=== PATIENT | female | born 1940 | race Caucasian/White ===

== ENCOUNTER → 2018-12-14 15:48 | Outpatient (CLI) | payer MEDICARE, BC ==
[2018-12-17 10:08] LABS: IMMUNOGLOBULIN A 164 mg/dL (64-422); IMMUNOGLOBULIN G 1343 mg/dL (700-1600); IMMUNOGLOBULIN M 81 mg/dL (26-217)
[2018-12-18 12:09] LABS: ANGIOTENSIN CONVERTING ENZYME < 15 U/L (14-82)
[2018-12-19 17:08] LABS: FUNGAL - ASP FLAVUS Negative (Neg:<1:1); FUNGAL - ASP NIGER Negative (Neg:<1:1); FUNGAL - ASPER FUMIGATUS Negative (Neg:<1:1)
[2018-12-20 03:07] LABS: IMMUNOGLOBULIN E 33 IU/mL (6-495)
== END | disposition home or self-care (01) ==
LOC: D.LABREF 15:48
PROVIDERS: ATTEND Internal Medicine Pulmonary Disease
DX: R91.8 Other nonspecific abnormal finding of lung field (principal)

== ENCOUNTER → 2018-12-26 14:10 | Outpatient (CLI) | payer MEDICARE, BC | END | disposition home or self-care (01) | LOC: D.RT 09:30 | PROVIDERS: ATTEND Internal Medicine Pulmonary Disease | DX: J45.909 Unspecified asthma, uncomplicated (principal) ==

== ENCOUNTER 2019-03-09 17:06 | Inpatient (IN) | payer MEDICARE, BC ==
[~2019-03-09] VITALS: Ht 167.6 cm; Wt 102.7 kg
--- NOTE | ~2019-03-09 | EC ---
PATIENT:ALEN VALDERRAMA DATE OF SERVICE: 03/09/19 SEX: F MEDICAL RECORD: [id number] DATE OF : 42 LOCATION:D. D.212 AGE OF PATIENT: 78 ADMISSION DATE: 03/09/19 REFERRING PHYSICIAN: INTERPRETING PHYSICIAN: YUDI VELASQUEZ MD ECHOCARDIOGRAM REPORT ECHO CHARGES 4 ECHO COMPLETE Date: 03/10/19 CLINICAL DIAGNOSIS: ATRIAL FIB ECHOCARDIOGRAPHIC MEASUREMENTS (adult normal given) AC root (d.<3.7cm) 3.4 cm LV Septum d (<1.2 cm> 1.2 cm Valve Excursion 1.2 cm LV Septum (systole) 1.4 cm Left Atria (s.<4.0cm> 4.0 cm LVPW d(<1.2cm) 1.2 cm RV (d.<2.3cm) 3.8 cm LVPW (sytole) 1.4 cm LV diastole(<5.6CM) 4.1 cm MV E-F(>70mm/sec) cm LV systole 3.0 cm LVOT Diameter 1.5 cm MV exc.(>10mm) 1.1 cm Est.ejection fraction (50-75%) % DOPPLER: LVIT cm/sec A 60.0 cm/sec E 181.0 cm/sec LA cm/sec RVSP 55 mmHg LVOT 148 cm/sec AOP1/2T m/s Asc. Ao 214 cm/sec RVOT 100 cm/sec RA cm/sec PA 103 cm/sec AV Gradient Peak 18.28mmHg AV Mean 10.47mmHg AV Area cm MV Gradient Peak 20.47mmHg MV Mean 7.26 mmHg MV Area cm COMMENTS: Electrician Outside: 2 JOSEPH CHAVIS [employer] Nutritional Monitor: 1 Dr. Velasquez TAPE# PACS Pericardial Effusion N DATE OF SERVICE: ECHOCARDIOGRAM FINDINGS: 1. Left ventricular chamber size is within normal limits. Left ventricular systolic function is normal. Overall ejection fraction estimated at 50-55%. 2. Left atrium is enlarged at 4.0 cm. Right atrium and right ventricular chamber sizes are as well mildly dilated. 3. Valvular structures; aortic valve demonstrates mild calcific aortic ECHOCARDIOGRAM REPORT [id number] ALEN VALDERRAMA stenosis, valve area calculates 1.5 cm squared and has a gradient of 18 mm across the valve. The mitral valve as well is very heavily calcified and appears restricted. There appears to be a gradient of 20 mm across the mitral valve. The remaining valvular structures have normal structure and motion. 4. Doppler interrogation elsewise reveals mild aortic insufficiency, moderate mitral regurgitation, moderate tricuspid regurgitation, no other valvular insufficiency or stenosis. Pulmonary systolic pressure is elevated estimated at 55 mmHg. 5. No evidence of pericardial effusion or left ventricular thrombus. TRANSINT:[id number] Voice Confirmation ID: [id number] DOCUMENT ID: [id number] YUDI VELASQUEZ MD CC: [id number] DICTATION DATE: 03/11/19 1252 LEATHER SPONGER: 03/11/19 1341 ADM IN [facility] [address] [place] [address]
--- NOTE | ~2019-03-09 | OP ---
PATIENT NAME: ALEN VALDERRAMA MEDICAL RECORD: [id number] :42 LOCATION:D.M2 D.2124 ADMISSION DATE:03/09/19 SURGEON: YUDI DIAZ MD DATE OF OPERATION: 03/12/2019 PROCEDURES: 1. DC cardioversion. 2. IFR RCA. 3. IFR left circumflex. 4. Left heart catheterization. 5. Selective coronary angiography. 6. Left ventriculogram. INDICATION: Non-Q-wave myocardial infarction, atrial fibrillation, congestive heart failure. PROCEDURE IN DETAIL: After informed consent was obtained and after a detailed description of risks, benefits as well as alternative therapies, the patient elected to proceed with angiogram and heart catheterization. The right femoral area was prepped and draped in normal sterile fashion. Right femoral artery was cannulated via modified Seldinger technique with placement of 6-[place] Islander sheath. All catheters exchanged through this sheath. FINDINGS: The left ventriculogram was performed in standard 30-degree CASEY view, reveals global hypokinesis, ejection fraction in the 35% range. SELECTIVE CORONARY ANGIOGRAPHY: 1. Left main is with no significant angiographic disease. 2. Left anterior descending has mild irregularities, no flow-limiting stenosis. 3. The left circumflex has moderate irregularities. IFR is normal. 4. Right coronary has moderate irregularities. IFR was normal. IV conscious sedation was performed per anesthesia. Continuous heart rate, O2 saturation, blood pressure monitoring all undertaken, all of which remains stable. She received 1 shock at 275 joules restoring sinus rhythm. OVERALL IMPRESSION: 1. No significant coronary artery disease is present. 2. Cardiomyopathy, ejection fraction at 35%. IMPRESSION: Successful DC cardioversion from atrial fibrillation to sinus rhythm. TRANSINT:[id number] Voice Confirmation ID: [id number] DOCUMENT ID: [id number] YUDI DIAZ MD CC: [id number] DICTATION DATE: 03/12/19 0956 ASSEMBLY INSPECTOR: 03/12/19 1312 ADM IN [place] [address] [place] [address]
--- NOTE | ~2019-03-09 | HEMODYNAMI ---
PATIENT:ALEN VALDERRAMA MEDICAL RECORD: [id number] : 44 [facility] ADMISSION DATE: 03/09/19 Generatedon:03/12/201910:03 Patient name: ALEN VALDERRAMA Patient #: [id number] SSN: DO B: 1940 Date of study: 03/12/2019 Page: Of Hemodynamic Procedure Report Patient Data Patient Demographics Procedure consent was obtained First Name: ALEN Gender: Female Last Name: LAVELLE : 1940 [facility] Initial: NEFTALI Age: 78 year(s) Patient #: [id number] Race: Unknown Additional ID: [id number] Contact details [address]: [address] [place] [address] State: [place] City: [place] Zip code: [address] Past Medical History Allergies: No known allergies Admission Admission Data Admission Date: 03/09/2019 Admission Time: 18:40 Arrival Date: 03/12/2019 Arrival Time: 0:00 Admit Source: Other Insurance Payor: Medicare Room #: D.2124 [facility] #: [id number] Height (in.): 66 BSA: 2.06 (m2) Height (cm.): 167.64 BMI: 34.54 (kg/m2) Weight (lbs.): 214 Weight (kg.): 97.07 Lab Results Lab Result Date: 03/12/2019 Lab Result Time: 0:00 Biochemistry Name Units Result Min Max BUN mg/dl 28 --(----)-* 7 18 Creatinine mg/dl 0.9 --(-*--)-- 0.6 1.3 eGFR ml/min 64.34187 *-(----)-- 90 120 NONAFRICAN Troponin l ng/ml 0.022 --(-*--)-- 0 0.06 CBC Name Units Result Min Max Hematocrit % 38 *-(----)-- 42 54 Hemoglobin g/dl 12.4 *-(----)-- 13.5 17.5 Procedure Procedure Types Cath Procedure Diagnostic Procedure [facility] w/Coronaries FFR/IVUS FFR Initial FFR Additional Cardioversion External Procedure Description Procedure Date Procedure Date: 03/12/2019 Procedure Start Time: 9:39 Procedure End Time: 10:00 Procedure Staff Name Function Shelley Guzman RT Monitor Jere Galvan RN Nurse Radha Montemayor RT Scrub John Velasquez MD Performing Physician Indication Shortness of breath Atrial fibrillation Angina Pulmonary hypertension Procedure Data Cath Procedure Fluoroscopy Diagnostic fluoroscopy Total fluoroscopy Time: 2.8 time: 2.8 min min Contrast Material Contrast Material Type Amount (ml) Isovue 370 51 Entry Location Entry Primary Successful Side Size Upsize Upsize Entry Closure Succes sful Closure Location (Fr) 1 (Fr) 2 (Fr) Remarks Device Remarks Femoral Right 5 Fr 6 Fr Exoseal artery Short Estimated blood loss: 10 ml Diagnostic catheters Device Type Used For End Catheter Placement MULTIPACK Pigtail 5 Fr Procedure catheter MULTIPACK JL 4.0 5Fr Procedure catheter MULTIPACK 3DRC 5Fr Procedure catheter Procedure Complications No complications Procedure Medications Medication Administration Route Dosage Oxygen etCO2 Nasal cannula 4 l/min Heparin Flush Bag added to field 2 bags (1000units/500ml NS) 0.9% NaCl I.V. 100 ml/hr Lidocaine 2% added to field 20 Refer to Anesthesia Notes for Sedation Medications Hemodynamics Rest BSA: 2.06 (m2) HGB: 12.4 (g/dl) O2 Consumption: Estimated: 211.65 (ml/min) O2 Co nsumption indexed: Estimated:102.74 (ml/min/m) Heart Rate: 102 (bpm) Snapshots Pre Cath Intra NCS Post Cath Vital Signs Time Heart Resp SPO2 etCO2 NIBP (mmHg) Rhythm Pain Sedation Rate (ipm) (%) (mmHg) Status Level (bpm) 9:30:07 105 25 98 3 119/79(112) A-Fib (Missing) 10(A) 9:34:27 122 23 98 0 97/83(93) A-Fib (Missing) 10(A) 9:38:20 103 24 96 0 109/94(102) A-Fib (Missing) 10(A) 9:43:19 113 23 97 10.5 Measuring A-Fib (Missing) 10(A) 9:43:21 105 23 97 10.5 105/78(88) A-Fib (Missing) 10(A) 9:48:20 85 17 56 4.5 Measuring A-Fib (Missing) 10(A) 9:49:44 73 31 58 17.2 Time A-Fib (Missing) 10(A) Exceeded 9:52:16 69 40 96 0 117/66(93) A-Fib (Missing) 6(A) 9:56:28 70 26 91 45.7 127/70(93) A-Fib (Missing) 6(A) 10:00:44 69 24 87 7.5 117/63(86) A-Fib (Missing) 9(A) Medications Time Medication Route Dose Verified Delivered Reason Notes Effe ctiveness by by 9:29:16 Oxygen etCO2 4 John Oquendo Per Nasal l/min Ron Galvan RN physician cannula 9:29:41 Heparin Flush added 2 John Oquendo used for Bag to bags Ron Galvan RN procedure (1000units/500ml field NS) 9:29:53 0.9% NaCl I.V. 100 John Oquendo Per ml/hr Ron Galvan RN physician 9:30:07 Lidocaine 2% added 20ml John Oquendo for local to vial Ron Galvan RN anesthetic field 9:30:25 Refer to John Oquendo for Anesthesia Notes Ron Galvan RN sedation for Sedation Medications Procedure Log Time Note 8:28:45 Lab Result : BUN 28 mg/dl 8:28:45 Lab Result : eGFR NONAFRICAN 64.92555 ml/min 8:28:45 Lab Result : Hemoglobin 12.4 g/dl 8:28:45 Lab Result : Creatinine 0.9 mg/dl 8:28:45 Lab Result : Hematocrit 38 % 8:28:58 Diagnostic Cath Status : Urgent 8:30:01 Indication : Shortness of breath 8:30:16 Indication : Atrial fibrillation 8:30:22 Indication : Angina 8:30:37 Indication : Pulmonary hypertension 8:31:04 Procedure type changed to Cath procedure, Diagnostic procedure, LHC, [facility] w/Coronaries, FFR/IVUS, FFR Initial, FFR Additional, Cardioversion External 8:34:09 Admit Source: Other 8:34:12 Arrival Date: 03/12/2019 12:00:00 AM 8:34:17 Insurance Payor : Medicare 8:35:14 Patient Height : 66 inches 8:35:20 Patient Weight : 214 lbs 8:37:21 Lab Result : Troponin l 0.022 ng/ml 8:38:26 Stress Test: no; N/A ? 8:38:37 Risk of Mortality: 0.1 8:38:40 Risk of blood transfusion: 1.0 8:38:43 Risk of VISHAL: 1.7 8:38:53 Lab results completed and on chart. 8:42:26 Procedure Status Urgent Heart Cath (IP). 8:42:32 Time tracking: Regular hours (M-F 7:00 - 5:00) 8:42:36 Plan of Care:Hemodynamics will remain stable., Cardiac rhythm will remain stable., Comfort level will be maintained., Respiratory function will remain adequate., Patient/ family verbilizes understanding of procedure., Procedure tolerated without complication., Recovers from procedure without complications.. 8:55:04 Radha Montemayor RT(R) sent for patient. Start room use. 9:04:32 Patient received from [employer] to CCL 3 Alert and oriented. Tansferred to table in Supine position. 9:04:34 Warm blankets applied, and lisy hugger turned on for patient comfort. 9:04:37 Signed procedure consent form obtained from patient. 9:04:37 Correct patient and procedure confirmed by team. 9:04:39 ECG and BP/O2 sat monitors applied to patient. 9:04:46 H&P Date Dictated: 03/12/2019 Emergent; H&P N/A, Within 30 days and on chart.. 9:04:48 Pre-procedure instructions explained to patient. 9:04:48 Pre-op teaching completed and patient verbalized understanding. 9:04:52 Patient NPO since Midnight. 9:05:16 Patient allergic to cODEINE, pENICILLIN, tYLENOL 3 9:28:54 Vital chart was started 9:29:16 Oxygen 4 l/min etCO2 Nasal cannula was administered by Jere Galvan RN; Per physician; Verbal order read back and verified. 9:29:41 Heparin Flush Bag (1000units/500ml NS) 2 bags added to field was administered by Jere Galvan RN; used for procedure; Verbal order read back and verified. 9:29:44 Baseline sample Acquired. 9:29:46 Full Disclosure recording started 9::53 0.9% NaCl 100 ml/hr I.V. was administered by Jere Galvan RN; Per physician; Verbal order read back and verified. 9::54 Is the patient allergic to Iodine/contrast media? No. 9:29:56 Was the patient premedicated? Yes 9:29:57 Is patient on blood thinner?Yes 9:30:05 ACC The patient was administered the following blood thiners within the last 24 hours: ACCAspirin, Eliquis 9:30:07 Lidocaine 2% 20ml vial added to field was administered by Jere Galvan RN; for local anesthetic; Verbal order read back and verified. 9:30:07 Patient diabetic? Yes. 9:30:10 If diabetic: On Metformin? No 9:30:12 Patient not . Patient is over age 55. 9:30:12 ----Pre-sedation anethsthesia assessment.---- 9:30:16 Previous problem with sedation/anesthesia? No ? 9:30:17 Snore? Yes 9:30:18 Sleep apnea? Yes 9:30:19 Deviated septum? No 9:30:20 Opens mouth fully? Yes 9:30:21 Sticks out tongue? Yes 9:30:25 Refer to Anesthesia Notes for Sedation Medications was administered by Jere Galvan RN; for sedation; Verbal order read back and verified. 9:30:25 Airway obstruction? Yes COPD 9:30:29 Dentures? No ? 9:30:33 Pre procedure: right dorsailis pedis pulse 1+ Palpable, but thready & weak; easily obliterated 9:30:38 Patient pain scale 0/10 ?. 9:30:46 Right groin area was prepped with chlora-prep and draped in sterile fashion 9:31:34 pt has several skin tears in the rt groin area prior to procedure Unable to use rt wrist due to pts inability to turn arm for access 9:31:36 Alarms reviewed by R. N. 9:31:36 Sharps counted by scrub and verified by R.N. 9:31:47 IV patent on arrival in left forearm with 0.9% NaCl at KVO. 9:32:20 Rhythm: atrial fibrillation 9:32:27 Use device set Femoral Dx 9:32:28 ACIST Syringe (04393) opened to sterile field. 9:32:29 Bag Decanter (2002S) opened to sterile field. 9:32:30 Medline Cath Pack ([id number]) opened to sterile field. 9:32:31 ACIST Hand Control (66909) opened to sterile field. 9:32:32 ACIST Manifold (14382) opened to sterile field. 9:32:33 DIAGNOSTIC Multipack 5Fr catheter set (YY4394) opened to sterile field. 9:32:35 SHEATH 5FR Wheaton (HJR765) opened to sterile field. 9:32:36 EMERALD Guide Wire (074-194) opened to sterile field. 9:37:55 --------ALL STOP TIME OUT------ 9:37:55 Final Timeout: patient, procedure, and site verified with staff and physician. All members of the team are in agreement. 9:37:57 Right groin site verified by team. 9:38:01 Fire Safety Assessment: A--An alcohol-based skin anteseptic being used preoperatively., C--Open oxygen or nitrous oxide is being used., D--An ESU, laser, or fiber-optic light is being used. 9:38:05 Physical assessment completed. ASA score P 2 - A patient with mild systemic disease as per John Velasquez MD. 9:38:13 2) 60-89 Mildly reduced kidney function, and other findings (as for stage 1) point to kidney disease. 9:38:16 Maximum allowable contrast dose (3.7 X eGFR X 0.75)178 ml. 9:38:23 Sedation plan: TIVA Medication:Propofol 9:38:32 Procedure started. 9:39:15 Local anesthetic to right femoral artery with Lidocaine 2% by John Velasquez MD.INITIAL ACCESS ONLY 9:39:29 A 5 Fr sheath was inserted into the Right Femoral artery 9:40:19 A MULTIPACK Pigtail 5 Fr catheter was advanced over the wire and used for Procedure. 9:40:28 Injector settings: Ml/sec: 10, Volume: 20, 9:40:30 LV gram done using CASEY 9:41:05 EF : 35 % 9:41:07 Catheter removed. 9:41:11 A MULTIPACK JL 4.0 5Fr catheter was advanced over the wire and used for Procedure. 9:41:50 LCA angiography performed. 9:42:46 Catheter removed. 9:42:50 A MULTIPACK 3DRC 5Fr catheter was advanced over the wire and used for Procedure. 9:43:14 RCA angiography performed. 9:43:31 Catheter removed. 9:43:33 Proceeding to intervention. 9:43:44 Sheath upsized to a 6 Fr Short. 9:44:12 SHEATH 6FR Wheaton (SXX215) opened to sterile field. 9:44:19 Vivartesrata Plus pressure wire (67449V) opened to sterile field. 9:44:59 GUIDE 6FR XBLAD 4.0 catheter ([id number]) opened to sterile field. 9:45:18 6 Fr xblad 4 guide catheter was inserted over the wire 9:45:28 FFR/IFR wire advanced. 9:47:22 mCirc lesion measured at .98 with IFR 9:47:52 6 Fr AR 1 guide catheter was inserted over the wire 9:48:25 Wire redirected to RCA. 9:48:37 Wire advanced across lesion. 9:49:24 mRCA lesion measured at .91 with IFR 9:50:06 Wire removed. 9:50:07 Guide catheter removed. 9:51:12 ------Cardioversion------ 9:51:13 Quick combo pads placed on patients chest and back. 9:51:19 Defibrillator synced and charged to 275 Joules. 9:51:21 Shock delivered. 9:51:45 Patient cardioverted to sinus rhythm . 9:52:05 EXOSEAL 6Fr (EX600) opened to sterile field. 9:52:20 Sheath removed intact; hemostasis achieved with Exoseal to the Right Femoral artery. 9:52:22 Procedure ended.(Physican Out) 9:53:02 Fluoroscopy time 02.80 minutes. 9:53:16 Dose Area Product 2257 mGy/cm. 9:53:19 Contrast amount:Isovue 370 51ml. 9:53:28 Maximum allowable dose exceeded? No. 9:53:30 Sharps counted by scrub and verified by R.N. 9:53:37 Post-op/insertion site Right Femoral artery dressed using a 4 x 4 and Tegaderm. 9:53:42 Post right femoral artery:stable, soft, clean and dry 9:53:48 Post Procedure Pulses reassessed and unchanged 9:53:51 Post procedure: right dorsailis pedis pulse 1+ Palpable, but thready & weak; easily obliterated. 9:53:56 Post-procedure physical assessment completed. ASA score P 2 - A patient with mild systemic disease as per John Velasquez MD. 9:53:59 Post procedure rhythm: sinus rhythm 9:54:02 Estimated blood loss: 10 ml 9:54:20 Post procedure instruction explained to patient.Patient verbalizes understanding. 9:54:21 Patient needs reinforcement of post procedure teaching. 9:57:41 ANETHESIA OBTAINED AIRWAY AND SKIN TEAR TO THE UPPER LIP DURING ACCESS. 9:57:49 Procedure Complication : No complications 9:57:53 [facility] Findings: MVD- PCI performed (see procedure note) 9:57:56 Operative report dictated upon procedure completion. 9:57:58 See physician's report for complete and final results. 9:58:01 Report given to [facility]. 9:58:04 Patient transfered to [facility] with Bed. 10:00:37 Procedure and supply charges have been captured, reviewed, submitted and are correct. 10:00:38 Vital chart was stopped 10:00:41 Procedure ended. 10:00:41 Full Disclosure recording stopped 10:01:28 End room use (Document Last) 10:01:40 End room use (Document Last) 10:03:05 End room use (Document Last) Device Usage Item Name Manufacture Quantity Catalog Hospital Part Current Minima l Lot# / Number Charge Number Stock Stock Serial# Code ACIST Acist 1 [id number] 120910 393641 [id number] 20 Syringe Medical (14096) Systems Inc Bag Microtek 1 2001S [id number] 87614 488690 5 Decanter Medical Inc. () Medline Medline 1 [id number] 375756 09311 882402 5 Cath Pack ([id number]) ACIST Hand Acist 1 07045 380172 308354 784227 5 Control Medical (87587) Systems Inc ACIST Acist 1 19741 604263 140587 772072 5 Manifold Medical (37116) Systems Inc DIAGNOSTIC Cardinal 1 BG3999 268676 96731 504735 30 Multipack Health 5Fr catheter set (VZ9738) SHEATH 5FR Terumo 1 BGR786 618441 624603 481196 5 Wheaton (NZR406) EMERALD Cardinal 1 502-455 478839 711925 958652 5 Guide Wire Health (502-455) MULTIPACK Cardinal 1 698669 5 Pigtail 5 Health Fr catheter MULTIPACK Cardinal 1 705344 5 JL 4.0 5Fr Health catheter MULTIPACK Cardinal 1 103342 5 3DRC 5Fr Health catheter SHEATH 6FR Terumo 1 UOZ812 488920 849934 075489 40 Wheaton (EBV385) [place] 1 28246X 494565 346730427 892462 5 Verrata Plus pressure wire (71749P) GUIDE 6FR Cardinal 1 [id number] 581893 746673 088069 3 XBLAD 4.0 Health catheter ([id number]) EXOSEAL 6Fr Cardinal 1 EX600 333774 416050 471381 10 (EX600) Health Signature Audit [place] Stage Time Signature Unsigned Intra-Procedure 03/12/2019 Shelley Guzman 10:01:40 AM RT(R) Intra-Procedure 03/12/2019 Jere Galvan 10:03:05 AM RN Intra-Procedure 03/12/2019 John Velasquez 10:03:23 AM [place] [address] [place] [address]
--- NOTE | ~2019-03-09 | DS ---
PATIENT:ALEN MILLER :44 MEDICAL RECORD: [id number] DISCHARGE SUMMARY ADMISSION DATE: 03/09/19 DISCHARGE DATE: DISCHARGE DIAGNOSES: 1. Congestive heart failure, chronic systolic dysfunction. 2. Atrial fibrillation. 3. DC cardioversion this admission. HOSPITAL COURSE: Mrs. Miller presents with heart failure symptomatology, found to be in atrial fibrillation with rapid ventricular response. She is already on Eliquis, has been on Eliquis. She underwent DC cardioversion. Her respiratory status improved dramatically discharged home with the addition of sotalol 80 mg b.i.d. Will follow up with [facility] in 1 week. TRANSINT:[id number] Voice Confirmation ID: [id number] DOCUMENT ID: [id number] YUDI DIAZ MD CC: [id number] DICTATION DATE: 03/13/19754 REGIONAL EXTENSION SERVICE SPECIALIST: 03/13/19 0840 ADM IN [facility] [address] [place] [address]
[2019-03-09] MEDS ORDERED: LIPITOR80 MG PO (17:13)
[2019-03-09] MEDS ORDERED: BAYER CHEWABLE81 MG PO (17:13)
[2019-03-09] MEDS ORDERED: ELIQUIS5 MG PO (17:13)
[2019-03-09] MEDS ORDERED: LEVIMERE SC (17:14)
[2019-03-09] MEDS ORDERED: NEURONTIN600 MG PO (17:14)
[2019-03-09] MEDS ORDERED: LASIX40 MG PO (17:14)
[2019-03-09] MEDS ORDERED: NEURONTIN 300300 MG PO (17:14)
[2019-03-09] MEDS ORDERED: NOVOLOG100 UNIT/1 SC (17:15)
[2019-03-09] MEDS ORDERED: POTASSIUM CHLOR8 ME1 PO (17:15)
[2019-03-09] MEDS ORDERED: OMEPRAZOLE20 M1 PO (17:15)
[2019-03-09] MEDS ORDERED: MELATONIN 3 MG1 TAB PO (17:15)
[2019-03-09] MEDS ORDERED: DILTIAZEM 24HR240 M4 PO (17:16)
[2019-03-09 17:58] LABS: BASOPHILS 0.1 % (0-2); EOSINOPHILS 0.2 % (0-7); HEMATOCRIT 41.2 % (36.0-48.0); HEMOGLOBIN 13.9 g/dL (12-16); IMMATURE GRANULOCYTES 0.3 % (0-5); LYMPHOCYTES 11.6 % (15-50); MCH 29.5 pg (26.0-34.0); MCHC 33.7 g/dL (31.0-37.0); MCV 87.5 fL (80.0-100.0); MEAN PLATELET VOLUME 10.8 fL (7.4-10.4); MONOCYTES 4.3 % (2-11); NEUTROPHILS 83.5 % (40-80); PLATELET COUNT 337 10x3/uL (130-400); RBC 4.71 10x6/uL (4.00-5.40); RDW 14.5 % (11.5-14.5); WBC 15.6 10x3/uL (4.8-10.8)
[2019-03-09 18:07] LABS: INR 1.33 (0.85-1.17); PROTIME 15.9 SECONDS (11.6-15.0)
[2019-03-09 18:09] LABS: ANION GAP 12.9 mmol/L (8-16); CALCIUM 9.7 mg/dL (8.5-10.1); CARBON DIOXIDE 28.9 mmol/L (21.0-32.0); CREATININE - SERUM 1.2 mg/dL (0.6-1.3); POTASSIUM - SERUM 3.8 mmol/L (3.5-5.1)
[2019-03-09 18:25] LABS: ALBUMIN 3.6 g/dL (3.4-5.0); BILIRUBIN - TOTAL 1.1 mg/dL (0.2-1.3); PROTEIN - SERUM 7.3 g/dL (6.4-8.2); THYROID STIMULATING HORMONE 0.8 uIU/mL (0.36-3.74); TROPONIN-I 0.056 ng/mL (0.000-0.060)
[2019-03-09 19:03] VITALS: BP 94/72
[2019-03-09 19:16] VITALS: BP 94/72
--- NOTE | 2019-03-09 19:24 | NUR ---
1845 PT CONVERTED TO ATRIAL FIB HR IN THE 60'S.CON'T TO MONITOR.
--- NOTE | 2019-03-09 20:01 | NUR ---
RECIEVED REPORT FROM KEN IN ER. KEN HAD INFORMED THIS NURSE THAT PT HAD CARDIZEM DRIP ORDERED, HOW EVER THE ER PHYSICAIN HAD TOLD HER TO DC/HOLD THE DRIP EVEN THOUGH THE RHYTHM WAS STILL A FIB BUT THE PTS HR WAS IN THE 60'S. THIS NURSE ASKED KEN TO BE SURE TO CHART THAT IN THE COMPUTER.
--- NOTE | 2019-03-09 23:57 | NUR ---
PT C/O FEELING LIKE SHE CANT CATCH HER BREATH, SPO2 94% ON 4 LITER VIA NC. RT AT BED SIDE TO ADMINISTER UPDRAFT.
[2019-03-10 00:09] VITALS: BMI 34.4
[2019-03-10 00:30] VITALS: BP 123/63
--- NOTE | 2019-03-10 04:22 | NUR ---
RESTING WITH EYES CLOSED, RESPERATIONS EVEN, NO S/S DISTRESS NOTED.
[2019-03-10 04:30] VITALS: BP 109/70
[2019-03-10 05:07] LABS: BASOPHILS 0.2 % (0-2); EOSINOPHILS 1.5 % (0-7); HEMOGLOBIN 12.4 g/dL (12-16); IMMATURE GRANULOCYTES 0.2 % (0-5); LYMPHOCYTES 20.1 % (15-50); MCH 28.9 pg (26.0-34.0); MCHC 32.6 g/dL (31.0-37.0); MCV 88.6 fL (80.0-100.0); MEAN PLATELET VOLUME 10.9 fL (7.4-10.4); MONOCYTES 6.5 % (2-11); NEUTROPHILS 71.5 % (40-80); PLATELET COUNT 298 10x3/uL (130-400); RBC 4.29 10x6/uL (4.00-5.40); RDW 14.8 % (11.5-14.5); WBC 12.9 10x3/uL (4.8-10.8)
[2019-03-10 05:41] LABS: ANION GAP 10.1 mmol/L (8-16); CARBON DIOXIDE 30.5 mmol/L (21.0-32.0); CREATININE - SERUM 0.9 mg/dL (0.6-1.3); PHOSPHOROUS 4.8 mg/dL (2.5-4.9); POTASSIUM - SERUM 3.6 mmol/L (3.5-5.1)
--- NOTE | 2019-03-10 08:33 | NUR ---
AM MEDS GIVEN AT THIS TIME. ALSO GAVE DEMEROL FOR PAIN LEVEL OF 8/10. PT A LITTLE SOB ON 2L, ENCOURAGED PT TO TAKE DEEP BREATHS. RT AC AND LT AC IV SL. MONITOR SHOWING UAF WITH RATE OF 108. BALL DRAINING YELLOW URINE TO GRAVITY. PT DENIES ANY OTHER NEEDS AT THIS TIME. FAMILY AT BEDSIDE, NAD NOTED,W ILL CONTINUE TO MONITOR.
[2019-03-10 09:05] VITALS: BP 118/66
[2019-03-10 11:03] VITALS: Ht 167.6 cm; Wt 102.7 kg
--- NOTE | 2019-03-10 11:38 | NUR ---
BLOOD SUGAR OF 268, 6UNITS GIVEN PER S/S. PT UP TO SIDE OF BED, WANTS TO GET A BATH TODAY. WILL GET PHOTOGRAPHIC EQUIPMENT MECHANIC TO GIVE PT A BATH. PT DENIES ANY OTHER NEEDS AT THIS TIME. CALL LIGHT IN REACH, FAMILY AT BEDSIDE, NAD NOTED, WILL CONTINUE TO MONITOR.
[2019-03-10 16:00] VITALS: BP 123/80
--- NOTE | 2019-03-10 16:31 | NUR ---
BLOOD SUGAR OF 249, 4 UNITS GIVEN PER S/S. PT DENIES ANY NEEDS AT THIS TIME, CALL LIGHT IN REACH, FAMILY AT BEDSIDE, NAD NOTED.
[2019-03-10 18:28] VITALS: BP 141/72
--- NOTE | 2019-03-10 19:15 | NUR ---
RECEIVED REPORT, WILL ASSUME CARE OF PT, SITTING ON SIDE OF BED, DENIES ANY NEEDS AT THIS TIME, BED IS LOW, SR X2, CALL LIGHT IN REACH, WILL CONTINUE PLAN OF CARE
[2019-03-10 20:00] VITALS: BP 121/89
--- NOTE | 2019-03-10 21:50 | NUR ---
EVENING MEDS PROVIDED WITH ICE WATER, PT REQUESTING BREATHING TREATMENT(PAGED RT), [id number] COVERAGE AT THIS TIME, BED IS LOW, SRX2, CALL LIGHT IN REACH, WILL CONTINUE PLAN OF CARE
[2019-03-11 00:05] VITALS: BP 118/86
[2019-03-11 04:36] VITALS: BP 124/76
--- NOTE | 2019-03-11 06:00 | NUR ---
I have reviewed this patient and I concur with the Shift Assessment completed by the Licensed Practical Nurse today this shift.
[2019-03-11 07:35] VITALS: BP 83/51
--- NOTE | 2019-03-11 10:59 | NUR ---
AWAKE AND ALERT . TELEMERTY SHOWS UCAF AT 131. UP WITH ASSIST. EDEMA TO LEGS. O2 AR 4 L/M PER NC. SL TO RIGHT AND LEFT AC . DENIES ANY NEEDS. FAMILY AT BEDSIDE
[2019-03-11 11:28] VITALS: BP 97/70
--- NOTE | 2019-03-11 13:51 | NUR ---
I have reviewed this patient and I concur with the Shift Assessment completed by the Licensed Practical Nurse today this shift.
[2019-03-11 16:06] VITALS: BP 108/64
--- NOTE | 2019-03-11 19:20 | NUR ---
RECEIVED REPORT, WILL ASSUME CARE OF PT, SITTING ON SIDE OF BED, DENIES ANY NEEDS, FAMILY AT BEDSIDE, BED IS LOW, SRX2, CALL LIGHT IN REACH, WILL CONTINUE PLAN OF CARE
[2019-03-11 20:45] VITALS: BP 90/66
[2019-03-12 00:15] VITALS: BP 113/74
[2019-03-12 04:18] VITALS: BP 125/75
--- NOTE | 2019-03-12 08:10 | NUR ---
ASSESSMENT DONE. DENIES NEEDS
--- NOTE | 2019-03-12 09:08 | NUR ---
TO CURATORIAL SPECIALIST PER BED
[2019-03-12 09:20] VITALS: BP 102/79
--- NOTE | 2019-03-12 10:01 | NUR ---
RETURN FROM SAP BODS DEVELOPER PER BED. RT CELESTE QUIROGA C/D/I, PULSE PALP
--- NOTE | 2019-03-12 10:02 | NUR ---
I have reviewed this patient and I concur with the Shift Assessment completed by the Licensed Practical Nurse today this shift.
[2019-03-12 12:10] VITALS: BP 121/51
--- NOTE | 2019-03-12 17:27 | NUR ---
WITHOUT CHANGES OR DISTRESS NOTED AT THIS TIME.
[2019-03-12 17:56] VITALS: BP 106/46
--- NOTE | 2019-03-12 19:31 | NUR ---
ASSESSMENT COMPLETE, PT A&O. RESPERATIONS EVEN ON O2 AT 4 LITERS VIA NC. IV TO LEFT HAND SL, SITE CLEAN AND DRY. DRSG TO RIGHT GROIN C/D/I. NO SWELLING, BLEEDING OR HEMATOMA NOTED. REPOSITIONED IN BED FOR COMFORT. SON AT BED SIDE, BED LOW, CL IN REACH.
[2019-03-12 20:00] VITALS: BP 115/66
[2019-03-13 00:33] VITALS: BP 116/50
--- NOTE | 2019-03-13 01:19 | NUR ---
I have reviewed this patient and I concur with the Shift Assessment completed by the Licensed Practical Nurse today this shift.
--- NOTE | 2019-03-13 03:59 | NUR ---
RESTING WITH EYES CLOSED, RESPERATIONS EVEN, NO S/S DISTRESS NOTED.
[2019-03-13 04:00] VITALS: BP 110/60
--- NOTE | 2019-03-13 07:21 | NUR ---
ASSESSMENT DONE. DENIES NEEDS
--- NOTE | 2019-03-13 07:22 | NUR ---
FAMILY AT SIDE.
--- NOTE | 2019-03-13 07:51 | HP ---
PATIENT: ALEN MILLER MEDICAL RECORD: [id number] ACCOUNT: [id number] LOCATION:[address] : 44 ADMISSION DATE: 03/09/19 PCP: MELISSA LOPEZ MD HISTORY AND PHYSICAL EXAMINATION DIAGNOSES: 1. Shortness of breath, dyspnea on exertion. 2. Peripheral edema. 3. Congestive heart failure. 4. Valvular heart disease. 5. Atrial fibrillation. 6. Angina. 7. Coronary artery disease and previous cardiac stenting. 8. Hypertension. 9. Hyperlipidemia. 10. Insulin-dependent diabetes. HISTORY OF PRESENT ILLNESS: Mrs. Miller has been followed by Dr. Guido in [place]. She has, appears to be new-onset atrial fibrillation as of . She became short of breath, was seen in [place], had the addition of Eliquis and Cardizem to her medical regimen. Appears that she might have had an echo. She was told that she has some bad valves and was considered for surgery, but they wanted to hold off for some reason. She progressively going downhill since then with more and more shortness of breath, lower extremity edema, pulmonary edema. She now presented to [facility] and was transferred here. She is markedly short of breath. Her atrial fibrillation was in the 150-180 range with a mildly elevated troponin yesterday. She was started on sotalol 120 mg b.i.d. Her atrial fibrillation is still present, but her heart rates in the 50s now. She is not having any chest discomfort at this time. She does have a history of cardiac stents in the very distant past, she thinks approximately 12 years ago. Her EKG had no overt ischemic changes. PHYSICAL EXAMINATION: CONSTITUTIONAL/GENERAL APPEARANCE: Well nourished, well developed, appears stated age. EYES: Lids and conjunctivae noninjected. No discharge. No pallor. ENT: Lips within normal limit. No cyanosis. No pallor. NECK: Carotid arteries, bilateral normal upstroke. No bruits. No thrills. No jugular venous pressure or distention. CERVICAL LYMPH NODES: Nontender. Nonenlarged. THYROID: Not enlarged. No nodules. CARDIOVASCULAR: Irregularly irregular, in atrial fibrillation. RESPIRATORY: Respiratory effort, unlabored. Normal curvature. No thoracic deformity. No chest wall tenderness. Percussion, resonant. Auscultation, clear. No wheezes, no rales, no rhonchi. ABDOMEN: Soft, nondistended, nontender. No abdominal pain, no vomiting and normal appetite. MUSCULOSKELETAL: No joint tenderness, normal gait, normal tone. SKIN: Warm and dry. OVERALL IMPRESSION: Elevated troponin, most likely the non-Q-wave myocardial infarction is secondary to the atrial fibrillation, but underlying coronary disease as well. At this time, her respiratory status is not such that we can perform cardiac catheterization. We will also have to repeat the echocardiogram to evaluate the details of this valvular heart disease. Further care depends HISTORY AND PHYSICAL [id number] ALEN MILLER upon the echocardiogram results with the continued diuresis and then ultimately cardiac catheterization. TRANSINT:[id number] Voice Confirmation ID: [id number] DOCUMENT ID: [id number] YUDI DIAZ MD at 0751 CC: [id number] DICTATION DATE: 03/10/19 1101 SAT MATH TUTOR: 03/10/19 1140 ADM IN [place] [id number] [place] [address]
[2019-03-13 08:17] VITALS: BP 113/52
[2019-03-13] MEDS ORDERED: BETAPACE 80 MG80 MG PO (08:47)
--- NOTE | 2019-03-13 09:18 | NUR ---
I have reviewed this patient and I concur with the Shift Assessment completed by the Licensed Practical Nurse today this shift.
--- NOTE | 2019-03-13 09:55 | NUR ---
DC GIVEN TO PT
--- NOTE | 2019-03-13 11:26 | NUR ---
DC HOME PER PERSONAL CAR
--- NOTE | 2019-03-13 16:16 | MORECARE ---
CASE MANAGEMENT DISCHARGE SUMMARY PATIENT: ALEN VALDERRAMA UNIT: [id number] ADM DATE: 03/09/19 AGE: 78 : 42 SEX: F ROOM/BED: D.5304 AUTHOR: MANDIE HUGO PHYSICIAN: REFERRING PHYSICIAN: YUDI DIAZ MD DATE OF SERVICE: 03/13/19 Discharge Plan Patient Name: ALEN VALDERRAMA Facility: [facility]:[place] : 1940 Planned Disposition: Home Anticipated Discharge Date: 03/13/19 Discharge Date: 03/13/2019 Expected LOS: 4 Initial Reviewer: [email or web address] Initial Review Date: 03/13/2019 Generated: 03/13/19 5:15 pm Patient Name: ALEN VALDERRAMA Page [id number] at 1616 All edits/amendments must be made on the electronic document DICTATION DATE: 03/13/191614 MANGLE TENDER CLOTH: CATIE 03/13/19 161 RPT#: [id number] DC DATE:03/13/19 STATUS: DIS IN [facility] [address] [place] [address] END OF REPORT
--- NOTE | 2019-03-13 16:24 | MORECARE ---
CASE MANAGEMENT DISCHARGE SUMMARY PATIENT: ALEN VALDERRAMA UNIT: [id number] ADM DATE: 03/09/19 AGE: 78 : 42 SEX: F ROOM/BED: D.9883 AUTHOR: OANH,DOC PHYSICIAN: REFERRING PHYSICIAN: YUDI DIAZ MD DATE OF SERVICE: 03/13/19 Discharge Plan Patient Name: ALEN VALDERRAMA Facility: [facility]:[place] : 1940 Planned Disposition: Home Anticipated Discharge Date: 03/13/19 Discharge Date: 03/13/2019 Expected LOS: 4 Initial Reviewer: [email or web address] Initial Review Date: 03/13/2019 Generated: 03/13/19 5:24 pm Comments DCP- Discharge Planning Updated by [email or web address]: Chris Fountain on 03/13/19 3:[address] Patient Name: ALEN VALDERRAMA Admission Status: ER Accout number: [id number] Admission Date: 03-09-2019 : 1940 Admission Diagnosis: Attending: ELIZABETH DIAZ Current LOS: 4 Anticipated DC Date: 03-13-2019 Planned Disposition: Home Primary Insurance: MEDICARE A & B Discharge Planning Comments: CM MET WITH PT IN ROOM TO DISCUSS DISCHARGE PLANNING AND NEEDS. PT REPORTS LIVING AT HOME INDEPENDENTLY WITH HER SPOUSE. PT HAS A WALKER WITH NO MEDICAL EQUIPMENT PROVIDER PREFERENCE. PT HAS NO OUTSIDE SERVICES ASSISTING IN THE HOME. CM DISCUSSED AVAILABILITY OF HOME HEALTH, REHAB SERVICES AND MEDICAL EQUIPMENT. PT DENIES DISCHARGE NEEDS, REPORTS HER SPOUSE WILL PICK HER UP FOR DISCHARGE HOME. IMPORTANT MESSAGE FROM MEDICARE PROVIDED AND EXPLAINED. PT SIGNED CHOICE FOR NO MEDICAL EQUIPMENT PROVIDER PREFERENCE IF SHE NEEDS OXYGEN. PT DISCHARGING HOME WITH SPOUSE, DENIES NEEDS. PURCHASING MANAGER NURSE NOTIFIED. Research Chemist: Chris Fountain DCPIA - Discharge Planning Initial Assessment Updated by [email or web address]: Chris Fountain on 03/13/19 4:22 pm * Is the patient Alert and Oriented? Yes * How many steps to enter\exit or inside your home? * PCP DR. LOPEZ * Pharmacy [facility] IN [place] * Preadmission Environment Home with Family * ADLs Independent * Equipment Walker * Other Equipment NO MEDICAL EQUIPMENT PROVIDER PREFERENCE * List name and contact numbers for known caregivers / representatives who currently or will assist patient after discharge: VERONICA VALDERRAMA, SPOUSE, * Verbal permission to speak to the caregivers and representatives has been obtained from the patient. Yes * Community resources currently utilized None * Please name any agencies selected above. NONE * Additional services required to return to the preadmission environment? No * Can the patient safely return to the preadmission environment? Yes * Has this patient been hospitalized within the prior 30 days at any hospital? Yes Coverage Notice Reviewer: [email or web address] Fountain Notice Issued Date-Time: 03/13/2019 8:40 Notice Type: IM Discharge Notice Notice Delivered To: Patient Relationship to Patient: Housekeeping Assistant Name: Delivery Method: HAND - Hand Delivered Rebeca Days: Prior Verbal Notification: Recipient Understood Notice: Yes Recipient Signature: Yes Med Rec Note Co-signed by Attending: Coverage Notice Comment: Reviewer: BOB Fountain Notice Issued Date-Time: 03/13/2019 8:40 Notice Type: Patient Choice Letter Notice Delivered To: Patient Relationship to Patient: Housekeeping Assistant Name: Delivery Method: HAND - Hand Delivered Rebeca Days: Prior Verbal Notification: Recipient Understood Notice: Yes Recipient Signature: Yes Med Rec Note Co-signed by Attending: Coverage Notice Comment: NO MEDICAL EQUIPMENT PROVIDER PREFERENCE Patient Name: ALEN VALDERRAMA Page [phone] at 1624 All edits/amendments must be made on the electronic document DICTATION DATE: 03/13/191623 FUNERAL DRIVER: CATIE 03/13/191623 RPT#: [id number] DC DATE:03/13/19 STATUS: DIS IN [facility] [address] [place] [address] END OF REPORT
== END 2019-03-13 11:27 | disposition home or self-care (01) | DRG 280 ==
LOC: D.ER 17:06 → D.M2 18:40
PROVIDERS: Family Medicine; ADMIT Internal Medicine Interventional Cardiology; ATTEND Internal Medicine Interventional Cardiology
PROC: 4A023N7 Measurement of Cardiac Sampling and Pressure, Left Heart, Percutaneous Approach (ICD-10-PCS; 2019-03-12)
PROC: 4A033BC Measurement of Arterial Pressure, Coronary, Percutaneous Approach (ICD-10-PCS; 2019-03-12)
PROC: B2111ZZ Fluoroscopy of Multiple Coronary Arteries using Low Osmolar Contrast (ICD-10-PCS; principal; 2019-03-12 09:30)
PROC: B2151ZZ Fluoroscopy of Left Heart using Low Osmolar Contrast (ICD-10-PCS; 2019-03-12 09:30)
DX: I48.0 Paroxysmal atrial fibrillation (principal); I21.A1 Myocardial infarction type 2; I50.31 Acute diastolic (congestive) heart failure; I11.0 Hypertensive heart disease with heart failure; I25.119 Atherosclerotic heart disease of native coronary artery with unspecified angina pectoris; E78.5 Hyperlipidemia, unspecified; E11.9 Type 2 diabetes mellitus without complications; Z79.4 Long term (current) use of insulin; I42.9 Cardiomyopathy, unspecified

== ENCOUNTER 2019-03-22 16:07 | Inpatient (IN) | payer MEDICARE, BC ==
[~2019-03-22] VITALS: Ht 167.6 cm; Wt 90.9 kg
[~2019-03-22 16:07] MED LIST: BAYER CHEWABLE81 MG PO; BETAPACE 80 MG80 MG PO; DILTIAZEM 24HR240 M4 PO; ELIQUIS5 MG PO; LASIX40 MG PO; LEVIMERE SC; LIPITOR80 MG PO; MELATONIN 3 MG1 TAB PO; NEURONTIN 300300 MG PO; NEURONTIN600 MG PO; NOVOLOG100 UNIT/1 SC; OMEPRAZOLE20 M1 PO; POTASSIUM CHLOR8 ME1 PO
--- NOTE | 2019-03-22 16:26 | NUR ---
NEW ADMIT FROM DR. VO OFFICE. OREINTED TO ROOM. CALL LIGHT IN REACH. WILL CONT. PLAN OF CARE.
[2019-03-22 16:38] VITALS: BP 137/73; BMI 34.7
[2019-03-22] MEDS ORDERED: BUMEX2 MG PO (16:45)
[2019-03-22 17:11] LABS: ANION GAP 8.5 mmol/L (8-16); CARBON DIOXIDE 34.7 mmol/L (21.0-32.0); CREATININE - SERUM 1.2 mg/dL (0.6-1.3); POTASSIUM - SERUM 3.2 mmol/L (3.5-5.1)
[2019-03-22 17:15] LABS: BASOPHILS 0.2 % (0-2); EOSINOPHILS 1.3 % (0-7); HEMATOCRIT 39.5 % (36.0-48.0); HEMOGLOBIN 13.3 g/dL (12-16); IMMATURE GRANULOCYTES 0.1 % (0-5); LYMPHOCYTES 17.5 % (15-50); MCH 29.2 pg (26.0-34.0); MCHC 33.7 g/dL (31.0-37.0); MCV 86.8 fL (80.0-100.0); MEAN PLATELET VOLUME 10.4 fL (7.4-10.4); MONOCYTES 7.3 % (2-11); NEUTROPHILS 73.6 % (40-80); PLATELET COUNT 316 10x3/uL (130-400); RBC 4.55 10x6/uL (4.00-5.40); RDW 14.6 % (11.5-14.5); WBC 14.2 10x3/uL (4.8-10.8)
--- NOTE | 2019-03-22 19:45 | NUR ---
RECEIVED BEDSIDE REPORT. PATIENT IS ALERT AND ORIENTED, RESTING COMFORTABLY. RESPIRATIONS ARE EVEN AND UNLABORED. NO S/S OF DISTRESS. NO C/O PAIN. CALL LIGHT WITHIN REACH.
[2019-03-22 20:30] VITALS: BP 119/50
[2019-03-23] VITALS: BP 116/46
--- NOTE | 2019-03-23 01:46 | NUR ---
PATIENT RESTING COMFORTABLYINBED. RESPIRATIONS ARE EVEN AND UNLABORED. NO S/S OF DISTRESS. NO C/O PAIN. CALL LIGHT WITHIN REACH. WILL CPOC.
[2019-03-23 03:22] VITALS: BP 131/55
[2019-03-23 04:33] LABS: BASOPHILS 0.3 % (0-2); EOSINOPHILS 1.1 % (0-7); HEMATOCRIT 40.1 % (36.0-48.0); HEMOGLOBIN 13.3 g/dL (12-16); IMMATURE GRANULOCYTES 0.2 % (0-5); LYMPHOCYTES 20.3 % (15-50); MCH 28.6 pg (26.0-34.0); MCHC 33.2 g/dL (31.0-37.0); MCV 86.2 fL (80.0-100.0); MEAN PLATELET VOLUME 10.2 fL (7.4-10.4); NEUTROPHILS 67.1 % (40-80); PLATELET COUNT 286 10x3/uL (130-400); RBC 4.65 10x6/uL (4.00-5.40); RDW 14.6 % (11.5-14.5); WBC 10.9 10x3/uL (4.8-10.8)
[2019-03-23 04:40] LABS: ANION GAP 9.8 mmol/L (8-16); CALCIUM 8.7 mg/dL (8.5-10.1); CARBON DIOXIDE 33.1 mmol/L (21.0-32.0); CREATININE - SERUM 0.9 mg/dL (0.6-1.3)
[2019-03-23 04:43] LABS: POTASSIUM - SERUM 2.9 mmol/L (3.5-5.1)
[2019-03-23 08:48] VITALS: BP 120/43
--- NOTE | 2019-03-23 10:04 | NUR ---
RELEMETRY SR. RESP UL ON 2L NC. IV PATENT. ASSISTED UP TO CHAIR WITH CALL LIGHT IN REACH. WILL CONT. PLAN OF CARE.
[2019-03-23 12:26] VITALS: BP 109/43
[2019-03-23 13:13] VITALS: BMI 34.7
[2019-03-23 16:02] VITALS: BP 118/41
--- NOTE | 2019-03-23 19:30 | NUR ---
REPORT AND INITIAL ROUNDS COMPLETED. PT RESTING IN BED. FAMILY AT BEDSIDE. BUMEX @ 10ML/HR INFUSING TO RFA. QUINN PATENT TO BEDSIDE DRAIN BAG. O2 @ 2L/NC WITH NONLABORED RESPIRATIONS. CALL LIGHT IN REACH. CPOC.
[2019-03-23 20:00] VITALS: BP 138/48
[2019-03-24] VITALS (7 sets, daily range): BP systolic 103–147; BP diastolic 46–95
--- NOTE | 2019-03-24 07:15 | NUR ---
RECEIVED PT IN BED AAOX4 RESP UNLABORED SKIN W/D COLOR WNL BLE EXTREMITIES RED TRACE EDEMA DEINIE AND PAIN OR NEEDS AT THIS TIME
[2019-03-24 12:07] LABS: BASOPHILS 0.1 % (0-2); EOSINOPHILS 0.3 % (0-7); HEMATOCRIT 40.2 % (36.0-48.0); HEMOGLOBIN 13.6 g/dL (12-16); IMMATURE GRANULOCYTES 0.2 % (0-5); LYMPHOCYTES 15.2 % (15-50); MCH 29.1 pg (26.0-34.0); MCHC 33.8 g/dL (31.0-37.0); MCV 86.1 fL (80.0-100.0); MEAN PLATELET VOLUME 10.3 fL (7.4-10.4); MONOCYTES 7.7 % (2-11); NEUTROPHILS 76.5 % (40-80); PLATELET COUNT 331 10x3/uL (130-400); RBC 4.67 10x6/uL (4.00-5.40); RDW 14.2 % (11.5-14.5); WBC 13.1 10x3/uL (4.8-10.8)
[2019-03-24 12:26] LABS: CALCIUM 9.3 mg/dL (8.5-10.1); CARBON DIOXIDE 35.1 mmol/L (21.0-32.0)
[2019-03-24 12:27] LABS: CREATININE - SERUM 1.2 mg/dL (0.6-1.3); POTASSIUM - SERUM 3.1 mmol/L (3.5-5.1)
[2019-03-24 19:01] LABS: APTT 30.6 SECONDS (22.8-39.4); INR 1.41 (0.85-1.17); PROTIME 17.2 SECONDS (11.6-15.0)
[2019-03-24 19:09] LABS: D-DIMER-QUANTITATIVE 5.12 ug/mLFEU (0.20-0.54)
[2019-03-24 19:36] LABS: ERYTHROCYTE SEDIMENTATION RATE 48 mm/hr (0-30)
--- NOTE | 2019-03-24 19:56 | NUR ---
REPORT RECIEVED AND INITIAL ROUNDS COMPLETED. PT SITTING ON SIDE OF BED. COUGHING CONTINUOUSLY AND SPITTING UP CLEAR PHLEGM WITH OCCASSIONAL PINK TINGED TO IT. PT VERY ANXIOUS ABOUT RASH THAT HAS BROKEN OUT ON HER AND THAT SHE WILL NOW BE SEEN BY A SENIOR CONTRACT SPECIALIST. PT ALSO CONCERNED THAT HER FEET ARE TOUCHING THE FLOOR AND SHE CANNOT WEAR SOCKS DUE TO LARGE FLUID FILLED BLISTERS. SHE FEELS THE FLOOR MAY BE MAKING HER SICK. DAUGHTER WASHED PT'S FEET AND PAPER BOOTIES THAT DO NOT COMPRESS THE BLISTERS HAVE BEEN PLACED ON HER FEET. POPSICLE PROVIDED AND THIS DIMINISHED THE COUGH. WILL HUMIDIFY THE O2 TO SEE IF THAT IS WHY SHE HAS PINK TINGED NASAL DRAINAGE.
[2019-03-25 04:36] VITALS: BP 124/59
[2019-03-25 06:05] LABS: BASOPHILS 0.2 % (0-2); EOSINOPHILS 0.8 % (0-7); HEMATOCRIT 41.9 % (36.0-48.0); HEMOGLOBIN 14.1 g/dL (12-16); IMMATURE GRANULOCYTES 0.2 % (0-5); LYMPHOCYTES 22.6 % (15-50); MCH 28.9 pg (26.0-34.0); MCHC 33.7 g/dL (31.0-37.0); MCV 85.9 fL (80.0-100.0); MEAN PLATELET VOLUME 10.4 fL (7.4-10.4); NEUTROPHILS 67.2 % (40-80); PLATELET COUNT 331 10x3/uL (130-400); RBC 4.88 10x6/uL (4.00-5.40); WBC 13.3 10x3/uL (4.8-10.8)
[2019-03-25 06:28] LABS: ALBUMIN 2.8 g/dL (3.4-5.0); ANION GAP 6.9 mmol/L (8-16); BILIRUBIN - TOTAL 1.32 mg/dL (0.2-1.3); CALCIUM 10.3 mg/dL (8.5-10.1); CARBON DIOXIDE 39.7 mmol/L (21.0-32.0); CREATININE - SERUM 1.4 mg/dL (0.6-1.3); PROTEIN - SERUM 7.7 g/dL (6.4-8.2)
[2019-03-25 06:30] LABS: POTASSIUM - SERUM 2.6 mmol/L (3.5-5.1)
--- NOTE | 2019-03-25 07:15 | NUR ---
RECEIVED PT SITTING ON SIDE OF BED AAOX4 RESP UNLABORED SKIN W/D COLOR WNL PETICHAEI WORSENING ON LEGS FROM LAST CHECK LAST NIGHT DENIES ANY NEEDS OR DISCOMFORT
[2019-03-25 08:00] VITALS: BP 100/78
[2019-03-25 12:00] VITALS: BP 104/45
[2019-03-25 12:14] VITALS: Ht 167.6 cm; Wt 90.9 kg
[2019-03-25 15:29] LABS: COMPLEMENT C4 39.9 mg/dL (17.4-52.2)
[2019-03-25 16:00] VITALS: BP 102/52
--- NOTE | 2019-03-25 20:02 | NUR ---
REPORT RECIEVED AND INITIAL ROUNDS COMPLETED. DR SOLIS HAS BEEN IN ROOM ROUNDING ON PATIENT. DAUGHTER AT BEDSIDE. BALL PATENT TO BEDSIDE DRAIN BAG, PALE YELLOW IN COLOR. O2 @ 2L/NC. SALINE LOCK TO RFA. STILL HAS WORSENING RASH TO GROIN AND THIGHS.
[2019-03-25 20:30] VITALS: BP 104/51
--- NOTE | 2019-03-25 22:52 | NUR ---
BEDTIME MEDS GIVEN. PT HAS BEEN PULLED UP AND REPOSITIONED FOR COMFORT. RASH STILL PRESENT. ASSESSED AT THIS TIME. FSBS 217, SLIDING SCALE INSULIN GIVEN. FAMILY AT BEDSIDE. CALL LIGHT IN REACH.
[2019-03-26 00:20] VITALS: BP 107/45
[2019-03-26 04:30] VITALS: BP 117/48
--- NOTE | 2019-03-26 05:21 | NUR ---
NO CHANGE FROM INITIAL SHIFT ASSESSMENT. CPOC. CALL LIGHT IN REACH.
[2019-03-26 06:33] LABS: BASOPHILS 0.1 % (0-2); EOSINOPHILS 0.3 % (0-7); HEMATOCRIT 41.1 % (36.0-48.0); HEMOGLOBIN 13.8 g/dL (12-16); IMMATURE GRANULOCYTES 0.2 % (0-5); LYMPHOCYTES 16.8 % (15-50); MCH 28.6 pg (26.0-34.0); MCHC 33.6 g/dL (31.0-37.0); MCV 85.3 fL (80.0-100.0); MEAN PLATELET VOLUME 10.7 fL (7.4-10.4); NEUTROPHILS 76.6 % (40-80); PLATELET COUNT 395 10x3/uL (130-400); RBC 4.82 10x6/uL (4.00-5.40); RDW 13.9 % (11.5-14.5); WBC 14.4 10x3/uL (4.8-10.8)
[2019-03-26 06:55] LABS: ALBUMIN 2.5 g/dL (3.4-5.0); ANION GAP 8.7 mmol/L (8-16); BILIRUBIN - TOTAL 1.17 mg/dL (0.2-1.3); CARBON DIOXIDE 35.3 mmol/L (21.0-32.0); CREATININE - SERUM 1.3 mg/dL (0.6-1.3); PROTEIN - SERUM 7.3 g/dL (6.4-8.2)
[2019-03-26 08:09] VITALS: BP 113/53
--- NOTE | 2019-03-26 09:49 | NUR ---
BALL CLAMPED. URINE SPECIMEN COLLECTED AND TAKEN TO LAB. WILL MONITOR.
[2019-03-26 10:02] LABS: APPEARANCE CLOUDY (CLEAR); BILIRUBIN NEGATIVE (NEGATIVE); COLOR YELLOW (YELLOW); GLUCOSE NEGATIVE (NEGATIVE); KETONE NEGATIVE (NEGATIVE); NITRITE NEGATIVE (NEGATIVE); PROTEIN TRACE mg/dL (NEGATIVE); SPECIFIC GRAVITY 1.015 (1.005-1.020); UROBILINOGEN NORMAL (NORMAL)
[2019-03-26 10:06] LABS: BACTERIA FEW /hpf (NEGATIVE); EPITHELIAL CELLS 0-5 /hpf (0-5); HYALINE CAST 0-5 /lpf (NONE SEEN); RED CELLS - URINE 25-50 /hpf (0-5)
[2019-03-26 11:32] VITALS: BP 99/55
[2019-03-26 14:11] LABS: ERYTHROCYTE SEDIMENTATION RATE 47 mm/hr (0-30)
--- NOTE | 2019-03-26 14:32 | NUR ---
Nutrition Follow-up: Eating fairly well. Ate ~75% of lunch today. Diet: Diabetic Cardiac PO intake: 25-100% Wt: 200.8# (03/25) Last BM: 03/26 Labs noted: Na 134, K+ 3.0, GFR 42, Glu 90, Alb 2.5 Meds noted: KCl, Solumedrol, Humulin, Bumex, Lantus, KDur, Micro K -Continue current diet as tolerated. -Monitor wt; noted daily wts ordered. -RD following.
[2019-03-26 15:22] VITALS: BP 108/55
--- NOTE | 2019-03-26 19:25 | NUR ---
RECEIVED BEDSDIE REPORT. PATIENT IS ALERT AND ORIENTED, RESTING COMFORTABLY IN BED. RESPIRATIONS ARE EVEN AND UNLABORED. NO S/S OF DISTRESS. NO C/O PAIN. CALL LIGHT WITHIN REACH. WILL CPOC.
[2019-03-26 20:00] VITALS: BP 115/50
--- NOTE | 2019-03-26 21:30 | NUR ---
SPOKE WITH MIO ABRAHAM APN ABOUT PATIENT CRITICAL BLOOD SUGAR. PATIENT GIVEN 20 UNITS. WILL RECHECK BLOOD SUGAR AT MIDNIGHT PER VERBAL ORDER.
[2019-03-27] VITALS: BP 122/43
[2019-03-27 04:00] VITALS: BP 110/44
[2019-03-27 06:23] LABS: BASOPHILS 0 % (0-2); EOSINOPHILS 0 % (0-7); HEMATOCRIT 37.3 % (36.0-48.0); HEMOGLOBIN 12.8 g/dL (12-16); IMMATURE GRANULOCYTES 0.2 % (0-5); LYMPHOCYTES 10.2 % (15-50); MCHC 34.3 g/dL (31.0-37.0); MCV 84.4 fL (80.0-100.0); MEAN PLATELET VOLUME 10.9 fL (7.4-10.4); MONOCYTES 5.7 % (2-11); NEUTROPHILS 83.9 % (40-80); PLATELET COUNT 392 10x3/uL (130-400); RBC 4.42 10x6/uL (4.00-5.40); RDW 13.9 % (11.5-14.5); WBC 17.8 10x3/uL (4.8-10.8)
[2019-03-27 06:59] LABS: ALBUMIN 2.5 g/dL (3.4-5.0); ANION GAP 7.9 mmol/L (8-16); BILIRUBIN - TOTAL 0.64 mg/dL (0.2-1.3); CALCIUM 9.9 mg/dL (8.5-10.1); CARBON DIOXIDE 33.1 mmol/L (21.0-32.0); CREATININE - SERUM 1.3 mg/dL (0.6-1.3); PROTEIN - SERUM 7.1 g/dL (6.4-8.2)
[2019-03-27 07:58] VITALS: BP 126/47
[2019-03-27 09:10] LABS: ANA REFLEX - DIRECT Negative (Negative)
[2019-03-27 09:10] LABS: ANA REFLEX - DIRECT Negative (Negative)
[2019-03-27 09:29] LABS: HEPATITIS C ANTIBODY 0.1 S/CO RAT (0.0-0.9)
--- NOTE | 2019-03-27 09:52 | NUR ---
AMBULATES HALLWAY WITH PT ASSIST. WILL CONT. PLAN OF CARE.
[2019-03-27 11:37] VITALS: BP 119/63
[2019-03-27] MEDS ORDERED: ALDACTONE25 MG PO (14:33)
[2019-03-27] MEDS ORDERED: BUMEX2 MG PO (14:34)
[2019-03-27 15:42] VITALS: BP 128/54
--- NOTE | 2019-03-27 19:30 | NUR ---
RECEIVED BEDSDIE REPORT, PATIENT IS ALERT AND ORIENTED, RESTING COMFORTABLY IN BED. RESPIRATIONS ARE EVEN AND UNLABORED. NO S/S OF DISTRESS. NO C/OPAIN. NEEDS MET. CALL LIGHT WITHIN REACH. WILL CPOC.
[2019-03-27 20:27] VITALS: BP 111/78
[2019-03-28 00:56] VITALS: BP 117/64
[2019-03-28 05:19] VITALS: BP 104/57
[2019-03-28 06:06] LABS: BASOPHILS 0.1 % (0-2); EOSINOPHILS 0.8 % (0-7); HEMATOCRIT 41.4 % (36.0-48.0); HEMOGLOBIN 14.2 g/dL (12-16); IMMATURE GRANULOCYTES 0.4 % (0-5); LYMPHOCYTES 21.3 % (15-50); MCH 29.1 pg (26.0-34.0); MCHC 34.3 g/dL (31.0-37.0); MCV 84.8 fL (80.0-100.0); MEAN PLATELET VOLUME 10.8 fL (7.4-10.4); MONOCYTES 5.6 % (2-11); NEUTROPHILS 71.8 % (40-80); PLATELET COUNT 433 10x3/uL (130-400); RBC 4.88 10x6/uL (4.00-5.40); WBC 19.4 10x3/uL (4.8-10.8)
[2019-03-28 06:41] LABS: ALBUMIN 2.6 g/dL (3.4-5.0); ANION GAP 14.3 mmol/L (8-16); BILIRUBIN - TOTAL 0.56 mg/dL (0.2-1.3); CALCIUM 9.6 mg/dL (8.5-10.1); CARBON DIOXIDE 25.7 mmol/L (21.0-32.0); CREATININE - SERUM 1.4 mg/dL (0.6-1.3); PROTEIN - SERUM 7.5 g/dL (6.4-8.2)
--- NOTE | 2019-03-28 09:57 | NUR ---
BALL DCD. HAS VOIDED.
--- NOTE | 2019-03-28 10:35 | HP ---
PATIENT: ALEN MILLER MEDICAL RECORD: [id number] ACCOUNT: [id number] LOCATION:[address] : 44 ADMISSION DATE: 03/22/19 PCP: MELISSA LOPEZ MD HISTORY AND PHYSICAL EXAMINATION DATE OF ADMISSION: 03/22/2019 DIAGNOSES: 1. Lower extremity edema. 2. Shortness of breath. 3. Valvular heart disease. 4. Hypertension. 5. Hyperlipidemia. 6. Coronary artery disease. 7. Paroxysmal atrial fibrillation. 8. Insulin-dependent diabetes. HISTORY OF PRESENT ILLNESS: Mrs. Miller was just in the hospital with decompensated heart failure. She underwent cardiac catheterization revealing mild coronary artery disease, but no flow limiting stenosis. No intervention was undertaken. She has had increasing lower extremity edema. She does have valvular heart disease. She as well was in atrial fibrillation. She was converted to sinus rhythm, maintained sinus rhythm. Her edema has continued to be worse. She is on Bumex at home. She is now admitted for IV Bumex. PHYSICAL EXAMINATION: CONSTITUTIONAL/GENERAL APPEARANCE: Well nourished, well developed, appears stated age. EYES: Lids and conjunctivae noninjected. No discharge. No pallor. ENT: Lips within normal limit. No cyanosis. No pallor. NECK: Carotid arteries, bilateral normal upstroke. No bruits. No thrills. No jugular venous pressure or distention. CERVICAL LYMPH NODES: Nontender. Nonenlarged. THYROID: Not enlarged. No nodules. CARDIOVASCULAR: Precordial exam, nondisplaced. No heaves or pericardial thrills. Rate and rhythm, regular. Heart sounds, normal S1, normal S2. No S3, no gallop, no rub. Systolic murmur, not heard. Diastolic murmur, not heard. RESPIRATORY: Respiratory effort, unlabored. Normal curvature. No thoracic deformity. No chest wall tenderness. Percussion, resonant. Auscultation, clear. No wheezes, no rales, no rhonchi. ABDOMEN: Soft, nondistended, nontender. No abdominal pain, no vomiting and normal appetite. MUSCULOSKELETAL: No joint tenderness, normal gait, normal tone. SKIN: Warm and dry. EXTREMITIES: Lower extremities are +4 weeping edema. OVERALL IMPRESSION: Edema and this will respond to IV Bumex. We will continue with IV Bumex drip. She has an ejection fraction of 55%, so she does not need an inotropic therapy. Further care depends upon the results with the diuresis. TRANSINT:[id number] Voice Confirmation ID: [id number] DOCUMENT ID: [id number] HISTORY AND PHYSICAL [id number] ALEN MILLER, YUDI BECERRA at 1035 CC: [id number] DICTATION DATE: 03/23/19842 BIBLICAL LANGUAGES PROFESSOR: 03/23/19 0913 ADM IN [facility] [address] [place] [address]
[2019-03-28 10:38] VITALS: BP 118/55
--- NOTE | 2019-03-28 13:02 | NUR ---
IV AND TELEMETRY DCD. DC PLANS GIVEN. UNDERSTANDING VOICED. ESCORTED TO CAR BY W/C.
--- NOTE | 2019-03-28 13:03 | NUR ---
IV AND TELEMETRY DCD. DC PLANS GIVEN. UNDERSTANDING VOICED. ESCORTED TO CAR BY W/C.
--- NOTE | 2019-03-28 18:01 | MORECARE ---
CASE MANAGEMENT DISCHARGE SUMMARY PATIENT: ALEN VALDERRAMA UNIT: [id number] ADM DATE: 03/22/19 AGE: 78 : 42 SEX: F ROOM/BED: D.[facility]8 AUTHOR: MANDIE HUGO PHYSICIAN: REFERRING PHYSICIAN: YUDI DIAZ MD DATE OF SERVICE: 03/28/19 Discharge Plan Patient Name: ALEN VALDERRAMA Facility: [facility]:[place] : 1940 Planned Disposition: Home Anticipated Discharge Date: 03/28/19 Discharge Date: 03/28/2019 Expected LOS: 6 Initial Reviewer: [email or web address] Initial Review Date: 03/28/2019 Generated: 03/28/19 7:01 pm DCPIA - Discharge Planning Initial Assessment Updated by [email or web address]: Chris Александр on 03/28/19 6:00 pm * Is the patient Alert and Oriented? Yes * How many steps to enter\exit or inside your home? NONE * PCP DR. LOPEZ * Pharmacy [facility] IN [place] * Preadmission Environment Home with Family * ADLs Independent * Equipment Walker * Other Equipment NO MEDICAL EQUIPMENT PROVIDER PREFERENCE * List name and contact numbers for known caregivers / representatives who currently or will assist patient after discharge: VERONICA VALDERRAMA, SPOUSE, * Verbal permission to speak to the caregivers and representatives has been obtained from the patient. N/A * Community resources currently utilized None * Please name any agencies selected above. NONE * Additional services required to return to the preadmission environment? No * Can the patient safely return to the preadmission environment? Yes * Has this patient been hospitalized within the prior 30 days at any hospital? No Patient Name: ALEN VALDERRAMA Page [phone] at 1801 All edits/amendments must be made on the electronic document DICTATION DATE: 03/28/191800 TAPE MACHINE TAILER: CATIE 03/28/191800 RPT#: [id number] DC DATE:03/28/19 STATUS: DIS IN [facility] [address] [place] [address] END OF REPORT
--- NOTE | 2019-03-28 18:10 | MORECARE ---
CASE MANAGEMENT DISCHARGE SUMMARY PATIENT: ALEN VALDERRAMA UNIT: [id number] ADM DATE: 03/22/19 AGE: 78 : 42 SEX: F ROOM/BED: D.6177 AUTHOR: OANH,DOC PHYSICIAN: REFERRING PHYSICIAN: YUDI DIAZ MD DATE OF SERVICE: 03/28/19 Discharge Plan Patient Name: ALEN VALDERRAMA Facility: [facility]:[place] : 1940 Planned Disposition: Home Anticipated Discharge Date: 03/28/19 Discharge Date: 03/28/2019 Expected LOS: 6 Initial Reviewer: [email or web address] Initial Review Date: 03/28/2019 Generated: 03/28/19 7:10 pm Comments DCP- Discharge Planning Updated by [email or web address]: Chris Fountain on 03/28/19 5:[address] Patient Name: ALEN VALDERRAMA Admission Status: Urgent Accout number: [id number] Admission Date: 03-22-2019 : 1940 Admission Diagnosis: Attending: ELIZABETH DIAZ Current LOS: 6 Anticipated DC Date: 03-28-2019 Planned Disposition: Home Primary Insurance: MEDICARE A & B Discharge Planning Comments: CM MET WITH PT IN ROOM TO DISCUSS DISCHARGE PLANNING AND NEEDS. PT REPORTS LIVING AT HOME INDEPENDENTLY WITH HER SPOUSE . PT HAS WALKER AND NO MEDICAL EQUIPMENT PROVIDER PREFERENCE. PT HAS NO OUTSIDE SERVICES ASSISTING IN THE HOME. CM DISCUSSED AVAILABILITY OF HOME HEALTH, REHAB SERVICES AND MEDICAL EQUIPMENT. PT DENIES DISCHARGE NEEDS, REPORTS HER DAUGHER, WILL, WILL PICK HER UP FOR DISCHARGE HOME. IMPORTANT MESSAGE FROM MEDICARE PROVIDED AND EXPLAINED. Hand Ii Thermal Cutter: Chris Fountain DCPIA - Discharge Planning Initial Assessment Updated by [id number]: Chris Fountain on 03/28/19 6:02 pm * Is the patient Alert and Oriented? Yes * How many steps to enter\exit or inside your home? NONE * PCP DR. LOPEZ * Pharmacy [facility] IN [place] * Preadmission Environment Home with Family * ADLs Independent * Equipment Walker * Other Equipment NO MEDICAL EQUIPMENT PROVIDER PREFERENCE * List name and contact numbers for known caregivers / representatives who currently or will assist patient after discharge: VERONICA VALDERRAMA, SPOUSE, WILL VALDERRAMA, DTR, * Verbal permission to speak to the caregivers and representatives has been obtained from the patient. N/A * Community resources currently utilized None * Please name any agencies selected above. NONE * Additional services required to return to the preadmission environment? No * Can the patient safely return to the preadmission environment? Yes * Has this patient been hospitalized within the prior 30 days at any hospital? No Coverage Notice Reviewer: [email or web address] Christopher Fountain Notice Issued Date-Time: 03/28/2019 12:15 Notice Type: IM Discharge Notice Notice Delivered To: Patient Relationship to Patient: Roto Gravure Press Operator Name: Delivery Method: HAND - Hand Delivered Rebeca Days: Prior Verbal Notification: Recipient Understood Notice: Yes Recipient Signature: Yes Med Rec Note Co-signed by Attending: Coverage Notice Comment: Last DP export: 03/28/19 5:01 p Patient Name: ALEN VALDERRAMA Page [phone] at 1810 All edits/amendments must be made on the electronic document DICTATION DATE: 03/28/191809 ELECTRIC MOTOR CONTROL ASSEMBLER: CATIE 03/28/191809 RPT#: [id number] DC DATE:03/28/19 STATUS: DIS IN [facility] [address] [place] [address] END OF REPORT
[2019-03-29 13:10] LABS: ANCA - ANTIMYELOPEROXIDASE <9.0 U/mL (0.0-9.0); ANCA - ANTIPROTEINASE 3 <3.5 U/mL (0.0-3.5); ANCA - ATYPICAL <1:20 titer (Neg:<1:20); ANCA - CYTOPLASMIC <1:20 titer (Neg:<1:20); ANCA - PERINUCLEAR <1:20 titer (Neg:<1:20)
[2019-03-29 13:10] LABS: ANCA - ANTIMYELOPEROXIDASE <9.0 U/mL (0.0-9.0); ANCA - ANTIPROTEINASE 3 <3.5 U/mL (0.0-3.5); ANCA - ATYPICAL <1:20 titer (Neg:<1:20); ANCA - CYTOPLASMIC <1:20 titer (Neg:<1:20); ANCA - PERINUCLEAR <1:20 titer (Neg:<1:20)
== END 2019-03-28 13:04 | disposition home or self-care (01) | DRG 871 ==
LOC: D.M2 16:07
PROVIDERS: Family Medicine; Internal Medicine Hematology & Oncology; Internal Medicine Nephrology; ADMIT Internal Medicine Interventional Cardiology; ATTEND Internal Medicine Interventional Cardiology
DX: A41.9 Sepsis, unspecified organism (principal); I50.33 Acute on chronic diastolic (congestive) heart failure; J18.9 Pneumonia, unspecified organism; D69.0 Allergic purpura; E87.1 Hypo-osmolality and hyponatremia; D68.9 Coagulation defect, unspecified; I48.19 Other persistent atrial fibrillation; I11.0 Hypertensive heart disease with heart failure; I48.0 Paroxysmal atrial fibrillation; E78.5 Hyperlipidemia, unspecified; J44.9 Chronic obstructive pulmonary disease, unspecified; T36.8X5A Adverse effect of other systemic antibiotics, initial encounter; I25.10 Atherosclerotic heart disease of native coronary artery without angina pectoris; Z79.01 Long term (current) use of anticoagulants; E87.6 Hypokalemia; E11.65 Type 2 diabetes mellitus with hyperglycemia; R31.9 Hematuria, unspecified